=== PATIENT | female | born 1980 | race Caucasian/White ===

== ENCOUNTER 2020-12-26 13:35 | Emergency (ER) | payer MEDICAID ==
[~2020-12-26] VITALS: Ht 160 cm; Wt 86.2 kg
[2020-12-26 13:35] VITALS: BP_SYST 101
[2020-12-26 14:53] LABS: BILIRUBIN,URINE 2+ (NEGATIVE); BLOOD, URINE NEGATIVE (NEGATIVE); CLARITY/URINE SL CLOUDY (CLEAR); COLOR,URINE ORANGE (YELLOW); LEUKOCYTE ESTERASE ,URINE 2+ (NEGATIVE); NITRITE, URINE POSITIVE (NEGATIVE); PROTEIN URINE 3+ (NEGATIVE)
[2020-12-26 15:13] LABS: UROBILINOGEN,URINE >=8 (0.2-1.0)
[2020-12-26 15:14] LABS: GLUCOSE,URINE NEGATIVE (NEGATIVE); KETONES,URINE NEGATIVE (NEGATIVE)
[2020-12-26 15:24] LABS: BACTERIA,URINE MODERATE /HPF (None Seen); WBC,URINE 20-50 /HPF (0-3)
[2020-12-26 15:25] LABS: MUCUS,URINE 2+ /LPF (None Seen)
[2020-12-26] MEDS ORDERED: AZITHROMYCIN 250 MG TABLET PO ONE (16:45)
[2020-12-26] MEDS ORDERED: GENTAMICIN SULFATE 80 MG/ 2ML VIAL IM ONE (16:45)
[2020-12-26] MEDS ORDERED: PHENAZOPYRIDINE HCL 100 MG TABLET PO ONE (16:45)
[2020-12-26] MEDS ORDERED: DOXY100T2 PO (16:45)
[2020-12-26] MEDS ORDERED: NITR-85 PO (16:46)
[2020-12-26] MEDS ORDERED: DIF100 PO (16:47)
[2020-12-26] MEDS ORDERED: PHEN-726 PO (17:11)
[2020-12-26 17:20] VITALS: BP_SYST 109
[2020-12-28 14:06] LABS: CHLAMYDIA TRACHOMATIS NAA Negative (Negative); NEISSERIA GONORRHOEAE NAA Negative (Negative)
== END 2020-12-26 17:17 | disposition home or self-care (01) ==
LOC: SED 13:35
DX: N72 Inflammatory disease of cervix uteri (principal); N39.0 Urinary tract infection, site not specified; Z79.899 Other long term (current) drug therapy; Z88.6 Allergy status to analgesic agent
CPT/HCPCS: 81000; 87070; 87086; 87210; 87491; 87591; 96372; 99283; J1580; Q0144